=== PATIENT | female | born 1985 | race Two or more races ===

== ENCOUNTER → 2025-02-28 | Outpatient (CLI) | payer BC, SELFPAY ==
--- NOTE | 2025-02-28 07:15 | XR_ITS ---
Examination: Abdomen sonogram, complete Date and time of exam: February 28, 2025 0723 hours INDICATIONS: Diagnosis cholelithiasis. Technique: Multiple real-time grayscale transabdominal sonographic images of the abdomen have been obtained. Findings: Multiple gallstones Normal gallbladder wall Common bile duct enlarged 0.7 cm Pancreatic head 2.5 cm Aorta not enlarged. Liver 17.6 cm fatty infiltration Normal hepatopedal portal venous flow Patent IVC Right kidney 11.6 cm cortex 1.1 cm Left kidney 10.2 cm cortex 1.3 cm Spleen 9.7 cm IMPRESSION: Cholelithiasis Abnormal enlargement common bile duct 0.7 cm, clinical correlation advised, consider MRCP follow-up to exclude common bile duct stones as clinically warranted
== END | disposition home or self-care (01) ==
LOC: CDIM 07:07
PROVIDERS: PCP Nurse Practitioner; Referring Provider Nurse Practitioner; Visit Provider Nurse Practitioner
DX: K80.20 Calculus of gallbladder without cholecystitis without obstruction (principal); K83.8 Other specified diseases of biliary tract
CPT/HCPCS: 76700